=== PATIENT | female | born 1955 | race Caucasian/White ===

== ENCOUNTER 2017-03-08 08:53 | Emergency (ER) | payer BC ==
[2017-03-08] MEDS ORDERED: Meclizine TAB* 12.5 MG PO ONE (09:55)
[2017-03-08] MEDS ORDERED: Ondansetron ODT TAB* 4 MG PO ONE (10:03)
--- NOTE | 2017-03-08 10:38 | RAD ---
HISTORY: Dizziness, headache, nausea COMPARISONS: Head CT dated June 03, 2004 TECHNIQUE: Multiple contiguous axial CT scans were obtained of the head without intravenous contrast. FINDINGS: HEMORRHAGE/INFARCT: There is no hemorrhage or acute infarct. MASSES/SHIFT: There is no mass or shift. EXTRA-AXIAL SPACES: There are no extra-axial fluid collections. SULCI AND VENTRICLES: The sulci and ventricles are normal in size and position for the patient's stated age. CEREBRUM: There are no focal parenchymal abnormalities. BRAINSTEM: There are no focal parenchymal abnormalities. CEREBELLUM: There are no focal parenchymal abnormalities. VESSELS: The vessels are grossly normal. PARANASAL SINUSES: The paranasal sinuses are clear. ORBITS: The orbits are unremarkable. BONES AND SOFT TISSUE: No bone or soft tissue abnormalities are noted. OTHER: None IMPRESSION: NO ACUTE INTRACRANIAL PATHOLOGY.
--- NOTE | 2017-03-08 11:42 | ED ---
Throat Pain/Nasal Congestion - HPI Summary HPI Summary: 61 yr old female with onset of feeling off balance and room spinning yesterday morning. She states her symptoms lasted several minutes and onset was upon getting out of bed and changing positions yesterday morning. She had a right frontal headache yesterday morning as well 10/03. This morning she woke up and felt the room spinning when sitting up in bed and every time she moves her head up or down she gets the symptoms of the room spinning. She states she feels a little off balance walking today due to room spinning but if she keeps her head still she feels better. She has associated nausea. She has a mild frontal headache as well today. She denies change in vision, speech, hearing, swallowing, numbness, weakness. She denies falling. Denies photophobia or neck stiffness. The patient has had vertigo in the past and had similar symptoms treated with meclizine. - History of Current Complaint Chief Complaint: UCDizziness Time Seen by Provider: 03/08/17 09:47 - Allergies/Home Medications Allergies/Adverse Reactions: Allergies Allergy/AdvReac Type Severity Reaction Status Date / Time Tetracycline Allergy Hives Verified 03/08/17 09:20 Home Medications: Home Medications Ibuprofen [Advil] 400 mg PO ONCE PRN 03/08/17 [History Confirmed 03/08/17] PMH/Surg Hx/FS Hx/Imm Hx Previously Healthy: Yes Neurological History: Reports: Other Neuro Impairments/Disorders - prior vertigo - Surgical History Surgery Procedure, Year, and Place: left knee meniscus; tonsils Infectious Disease History: No Infectious Disease History: Denies: Traveled Outside the [place] in Last 30 Days - Family History Known Family History: Positive: None - Social History Alcohol Use: Weekly Alcohol Amount: 5 Substance Use Type: Reports: None Smoking Status (MU): Never Smoked Tobacco Review of Systems Constitutional: Negative Negative: Photophobia, Blurred Vision, Diplopia Negative: Ear Ache Negative: Palpitations, Chest Pain Negative: Shortness Of Breath Positive: Nausea. Negative: Vomiting, Diarrhea Negative: Rash, Bruising Positive: Headache. Negative: Weakness, Paresthesia, Numbness, Syncope, Slurred Speech All Other Systems Reviewed And Are Negative: Yes Physical Exam Triage Information Reviewed: Yes Vital Signs On Initial Exam: Initial Vitals Temp Pulse Resp BP Pulse Ox 98.1 F 54 18 120/66 100 03/08/17 09:11 03/08/17 09:11 03/08/17 09:11 03/08/17 09:11 03/08/17 09:11 Vital Signs Reviewed: Yes Appearance: Positive: Well-Appearing, No Pain Distress Skin: Positive: Warm, Skin Color Reflects Adequate Perfusion Head/Face: Positive: Normal Head/Face Inspection Eyes: Positive: EOMI, BART, Conjunctiva Clear, Other: - no nystagmus ENT: Positive: Normal ENT inspection, Pharynx normal, TMs normal. Negative: Muffled/hoarse voice Neck: Positive: Supple, Nontender. Negative: No Lymphadenopathy, Nuchal Rigidity Respiratory/Lung Sounds: Positive: Clear to Auscultation, Breath Sounds Present Cardiovascular: Positive: RRR. Negative: Murmur Abdomen Description: Positive: Nontender Musculoskeletal: Positive: Strength/ROM Intact Neurological: Positive: Sensory/Motor Intact, Alert, Oriented to Person Place, Time, CN Intact II-III, Normal Gait, Finger to Nose - smooth, Speech Normal. Negative: Slurred Speech Psychiatric: Positive: Normal - [place] Coma Scale Best Eye Response: 4 - Spontaneous Best Motor Response: 6 - Obeys Commands Best Verbal Response: 5 - Oriented Diagnostics - Vital Signs Vital Signs Temp Pulse Resp BP Pulse Ox 03/08/17 09:11 98.1 F 54 18 120/66 100 - Laboratory Lab Statement: Any lab studies that have been ordered have been reviewed, and results considered in the medical decision making process. - CT brain CT Interpretation: No Acute Changes CT Interpretation Completed By: Radiologist EENT Course/Dx - Course Course Of Treatment: 61 yr old female with vertigo and frontal headache. Onset yesterday. Her CT is negative. neuro exam is non focal here, and gait is normal. Her symptoms are improved after meclizine. FU with PMD. - Diagnoses Provider Diagnoses: Vertigo, Headache Discharge - Discharge Plan Condition: Good Disposition: HOME Prescriptions: Meclizine HCl [Meclizine 25] 25 mg PO BID #14 tab Ondansetron [Zofran 8 MG Odt] 8 mg PO Q8HR PRN #10 tab PRN Reason: Nausea Patient Education Materials: Vertigo (ED), Acute Headache (ED) Referrals: Kalee Mcadams [Primary Care Provider] -
[2017-03-08 11:59] VITALS: BP 114/64
== END 2017-03-08 12:04 | disposition home or self-care (01) ==
LOC: UCCORT 08:53
DX: R42 Dizziness and giddiness (principal); R51 Headache
CPT/HCPCS: 70450; 99202; A9270-GY; G0463